=== PATIENT | female | born 1970 | race Hispanic/Latino ===

== ENCOUNTER 2018-06-22 08:02 | Emergency (ER) | payer BC, OTHER ==
--- NOTE | 2018-06-22 08:34 | Emergency Department Report ---
Abscess Boil HPI - HPI Chief Complaint: Eye Problems Stated Complaint: LUMP ON FACE/EYE INJURY Time Seen by Provider: 06/22/18 08:22 Duration: 3 Days Location: Head Severity: Mild History: Yes Pain, No Fever, No Purulent Drainage, No Numbness, No Foreign Body , No Previous History, No Insect Bite HPI: Pt reports facial swelling x a couple days as well as URI sx. reports intermittent dizziness. also reports she had a coat wet silk hanger go in her L eye this AM and has some minor pain but more concerned about facial swelling Home Medications: Previous Rx's Medication Instructions Recorded Last Taken Type Doxycycline [Vibramycin CAP] 100 mg PO Q12HR #20 capsule 06/22/18 Unknown Rx Allergies/Adverse Reactions: Allergies Allergy/AdvReac Type Severity Reaction Status Date / Time No Known Allergies Allergy Unverified 06/22/18 08:15 ED Review of Systems ROS: Stated complaint: LUMP ON FACE/EYE INJURY Other details as noted in HPI Comment: All other systems reviewed and negative Eyes: denies: vision change ED Past Medical Hx - Past Medical History Previous Medical History?: No - Surgical History Past Surgical History?: Yes Additional Surgical History: carpel tunnel sx to right hand. tubal ligation - Social History Smoking Status: Never Smoker Substance Use Type: None - Medications Home Medications: Home Medications Medication Instructions Recorded Confirmed Last Taken Type Doxycycline [Vibramycin CAP] 100 mg PO Q12HR #20 capsule 06/22/18 Unknown Rx ED Abscess Boil Physical Exam - Exam General: Vital signs noted. No distress. Alert and acting appropriately. Size: 3 cm Exam: Yes Tenderness, Yes Surrounding Cellulites/Erythema, Yes Normal Neurologic Exam, Yes Normal Circulation, No Fluctuance, No Lymphangitis, No Heart Murmur Exam: L cheek shows erythema, swelling/induration secondary to abscess/cyst. Eyes- EOMI, vision normal, tiny subconj hematoma noted to upper portion of eye, exam otherwise normal ED Course Vital Signs 06/22/18 08:09 Temperature 98.1 F Pulse Rate 64 Respiratory 18 Rate Blood Pressure 105/56 O2 Sat by Pulse 99 Oximetry Critical care attestation.: If time is entered above; I have spent that time in minutes in the direct care of this critically ill patient, excluding procedure time. ED Medical Decision Making - Medical Decision Making Pt with abscess/cellulitis to face- will RX doxy and recommend supportive care, pcp f/u 3 days tiny subconj hematoma due to injury but asymptomatic and exam otherwise normal- rec f/u eye doctor - Differential Diagnosis abscess, cellulitis, subconj hematoma ED Disposition Clinical Impression: Facial cellulitis Subconjunctival hematoma Qualifiers: Laterality: left Qualified Code(s): H11.32 - Conjunctival hemorrhage, left eye Disposition: TO HOME OR SELFCARE Is pt being admited?: No Condition: Good Instructions: Cellulitis (ED), Subconjunctival Hemorrhage (ED) Prescriptions: Doxycycline [Vibramycin CAP] 100 mg PO Q12HR #20 capsule Referrals: LUIS FERNANDO NUNEZ MD [Staff Physician] - 2-3 Days MIR CROUCH MD [Staff Physician] - 2-3 Days Time of Disposition: 08:35
[2018-06-22 09:07] VITALS: BP 107/86
== END 2018-06-22 09:03 | disposition home or self-care (01) ==
LOC: ED 08:02
DX: H00.034 Abscess of left upper eyelid (principal); Z98.51 Tubal ligation status
CPT/HCPCS: 99282